=== PATIENT | female | born 1970 | race American Indian/Alaskan Native ===

== ENCOUNTER 2017-06-09 19:55 | Emergency (ER) | payer OTHER ==
[2017-06-09 19:55] VITALS: BMI 38.0
[2017-06-09 20:27] VITALS: BP 131/86; PULSE 87; TEMP 97.9; O2SAT 99
[2017-06-09] MEDS ORDERED: Lidocaine 2% Inj (20ml) INFIL STA (21:52)
[2017-06-09] MEDS ORDERED: Lidocaine 2% Inj (20ml) ONE (21:55)
--- NOTE | 2017-06-09 22:09 | C.PDOC ---
History Of Present Illness 46 yo female come in for evaluation of Left index finger laceration sustained BUT[employer]AK[employer] at home with knife, while cooking. Otherwise, pt denies deformity, weakness , sensory or vascular deficits to injured finger. Ambulate to Ed for evaluation , not in any apparent distress. Time Seen by Provider: 06/09/17 21:35 Chief Complaint (Nursing): Wound Check History Per: Patient Past Medical History Reviewed: Historical Data, Nursing Documentation, Vital Signs Vital Signs: Last Vital Signs Temp 97.9 F 06/09/17 20:21 Pulse 87 06/09/17 20:21 Resp 18 06/09/17 20:21 BP 131/86 06/09/17 20:21 Pulse Ox 99 06/09/17 20:21 - Medical History PMH: Colonic Polyps, Gall Bladder Disease (GALLSTONES LAP ANSELMO), HTN Denies: Chronic Kidney Disease Surgical History: Cholecystectomy, Endoscopy - [facility] Procedures HEMORRHOIDECTOMY (03/17/14) Family History: States: Unknown Family Hx - Social History Hx Tobacco Use: No Hx Alcohol Use: No Hx Substance Use: No - Immunization History Hx Tetanus Toxoid Vaccination: No Hx Influenza Vaccination: No Hx Pneumococcal Vaccination: No Review Of Systems Except As Marked, All Systems Reviewed And Found Negative. Constitutional: Negative for: Fever, Chills Musculoskeletal: Negative for: Neck Pain, Hand Pain Skin: Positive for: Lesions Neurological: Negative for: Weakness, Numbness Physical Exam - Physical Exam Appears: Well, Non-toxic, No Acute Distress Skin: Normal Color, Warm, Other (2cm cutaneous laceration to palmar aspect Left distal 2nd phalanx, L-shape. No joint crossing. FAROM, no neurovascular deficits.) Extremity: Normal ROM, Capillary Refill (less than 2sec to Left index), No Deformity, No Swelling Neurological/Psych: Oriented x3, Normal Speech, Normal Motor, Normal Sensation, Normal Reflexes ED Course And Treatment O2 Sat by Pulse Oximetry: 99 Progress Note: On re-evaluation, pt is afebrile, hemodynamicaly stable. Non- toxic. Left hand: laceration over Left index finger repaired w/sutures, pt tolerate well. FAROM of injured finger, no neurovascular deficits. Neuorlogicaly intact. Pt advised on wound care. ref. to f/u with PMD in 1-2 days for re-eavl. return to ED if anyw orsening or new changes. Laceration - Laceration Repair Left index Wound Length (In cm): 2cm Description Of Wound: Clean, Irregular (L-shape) Anesthesia: Lidocaine 2% Wound Examination: Irrigated With Saline, No FB With Wound Exploration, No Tendon Injury With Wound Exploration Wound Closure: Suture (#5) Suture Technique And Material Used: Interrupted, Nylon (5-0) Wound Complexity: Simple Disposition Counseled Patient/Family Regarding: Diagnosis, Need For Followup - Disposition Referrals: Kehinde Olson MD [Staff Provider] - Disposition Time: 22:24 Condition: STABLE Additional Instructions: LIght duty to injured finger Keep wound clean, dry, apply bacitracin ant oitm daily to wound Suture removal in 7 days Follow up with PMD in 2 days for wound check. return to ED if any sign of infection. Instructions: Laceration Repair - Clinical Impression Clinical Impression: Laceration
[2017-06-09] MEDS ORDERED: Tetanus/Diphtheria Toxoids 0.5 ml Syringe IM ONE ×2 (22:24→22:38)
[2017-06-09 23:06] VITALS: RESP 20
== END 2017-06-09 23:05 | disposition home or self-care (01) ==
LOC: C.ER 19:55
DX: S61.211A Laceration without foreign body of left index finger without damage to nail, initial encounter (principal); W26.0XXA Contact with knife, initial encounter; Y93.G3 Activity, cooking and baking; Y92.000 Kitchen of unspecified non-institutional (private) residence as the place of occurrence of the external cause; Z23 Encounter for immunization